=== PATIENT | male | born 2000 | race Caucasian/White ===

== ENCOUNTER 2021-10-31 14:32 | Emergency (ER) | payer OTHER, SELFPAY ==
--- OUTSIDE RECORDS SUMMARY | 2021-10-31 14:34 | XMS REPORT | Continuity of Care Document ---
:2000 Author Organization [facility] t Address [address] [place] [address] Care Team Providers Name Role Phone DEION Attending Clinician Unavailable Payers Payer Name Policy Type Policy Number Effective Date Expiration Date [facility] [id number] 2018 PPO 00:00:00 Problems This patient has no known problems. Allergies, Adverse Reactions, Alerts Allergy Allergy Status Severity Reaction(s) Onset Inactive Treating Comm ents Source Name Type Date Date Clinician NO KNOWN Drug [facility] This patient has no known medications. Procedures This patient has no known procedures. Encounters Start End Encounter Admission Attending Care Care Encounter Source Date/Time Date/Time Type Type Clinicians Facility Department ID 2020-04-25 2020-04-25 Outpatient R [facility] [id number] [facility] 10:40:00 10:40:00 [id number] steffi [facility] 2020-04-25 2020-04-25 Outpatient R DEION [facility] [id number] Univers 10:40:00 10:40:[address] [facility] Results This patient has no known results.
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
[2021-10-31 16:19] VITALS: BP 153/91; TEMP 98.4; O2SAT 99
== END 2021-10-31 15:35 | disposition home or self-care (01) ==
LOC: ER 14:32
DX: H93.13 Tinnitus, bilateral (principal)
CPT/HCPCS: 99281